=== PATIENT | female | born 1970 | race African-American/Black ===

== ENCOUNTER 2016-11-06 21:43 | Observation (INO) | payer MEDICAID ==
[~2016-11-06] VITALS: Ht 162.6 cm; Wt 54.0 kg
[2016-11-06 23:31] LABS: BASOPHILS % 0.6 % (0.0-2.0); EOSINOPHILS % 3.4 % (0.0-5.0); HEMATOCRIT. 21.5 % (36.0-48.0); LYMPHOCYTES % 21.8 % (20.0-50.0); MEAN CORPUSCULAR HEMOGLOBIN 20.8 pg (28.0-32.0); MEAN CORPUSCULAR VOLUME 64.5 fL (81.0-99.0); MEAN PLATELET VOLUME 7.6 fl (7.4-10.4); MONOCYTES % 6.6 % (2.0-8.0); NEUTROPHILS % 67.6 % (40.0-76.0); PLATELET 399 x1000/uL (130-400); RED BLOOD CELL COUNT 3.33 mill/uL (4.2-5.4); RED CELL DISTRIBUTION WIDTH 19.5 % (11.6-14.6)
[2016-11-06 23:32] LABS: INR 1.1; PROTHROMBIN TIME 11.2 sec
[2016-11-06 23:39] LABS: CARBON DIOXIDE 28 mEq/L (21-32); CHLORIDE 110 mEq/L (98-107)
[2016-11-06 23:45] LABS: HEMOGLOBIN. 6.9 g/dL (12.0-16.0)
[2016-11-07 00:08] LABS: CLARITY URINE TURBID (CLEAR); COLOR URINE YELLOW (YELLOW); GLUCOSE URINE NEGATIVE (NEGATIVE); KETONES URINE NEGATIVE (NEGATIVE); LEUKOCYTE ESTERASE URINE 3+ (NEGATIVE); NITRITE URINE POSITIVE (NEGATIVE); OCCULT BLOOD URINE 1+ (NEGATIVE); PH URINE 6.5 (4.5-8.0); PROTEIN URINE TRACE (NEGATIVE); SPECIFIC GRAVITY URINE 1.006 (1.005-1.030); UROBILINOGEN URINE 0.2 E.U./dL (0.2-1.0)
[2016-11-07] MEDS ORDERED: CEFTRIAXONE 1 G PREMIX 50 ML IV ONE (01:00)
[2016-11-07 04:38] LABS: PLATELET ESTIMATE NORMAL
[2016-11-07 08:53] VITALS: BP 128/87
[2016-11-07 11:39] VITALS: BP 128/87
[2016-11-07 12:00] VITALS: BP 120/95
[2016-11-07] MEDS ORDERED: ONDANSETRON HCL 4MG/2ML VIAL IV PRN (12:30)
[2016-11-07] MEDS ORDERED: ACETAMINOPHEN 325MG TABLET PO PRN (12:30)
[2016-11-07] MEDS ORDERED: HYDROCODONE/ACETAMINOPHEN 5/325MG TABLET PO PRN (12:30)
[2016-11-07] MEDS ORDERED: IPRATROPIUM/ALBUTEROL 0.5-3(2.5)MG/3ML NEB INH PRN (12:30)
[2016-11-07] MEDS ORDERED: CLONIDINE 0.1MG TABLET PO PRN (12:30)
[2016-11-07] MEDS ORDERED: LEVOFLOXACIN 500MG PREMIX 100 ML IV SCH (15:00)
[2016-11-07 16:00] VITALS: BP 104/59
[2016-11-07 16:01] LABS: CARBON DIOXIDE 24 mEq/L (21-32); CHLORIDE 104 mEq/L (98-107); CREATINE KINASE 46 IU/L (26-192); TROPONIN I < 0.02 ng/mL (0.00-0.04)
[2016-11-07] MEDS: ENOXAPARIN 30MG/0.3ML SYR SUBCUT SCH (16:08)
[2016-11-07] MEDS: AMLODIPINE 10MG TABLET PO SCH (16:09)
[2016-11-07 20:00] VITALS: BP 135/107
[2016-11-07 20:25] LABS: BASOPHILS % 0.7 % (0.0-2.0); EOSINOPHILS % 2.5 % (0.0-5.0); HEMATOCRIT. 27.3 % (36.0-48.0); HEMOGLOBIN. 8.8 g/dL (12.0-16.0); LYMPHOCYTES % 17.7 % (20.0-50.0); MEAN CORPUSCULAR HEMOGLOBIN 22.1 pg (28.0-32.0); MEAN CORPUSCULAR VOLUME 68.6 fL (81.0-99.0); MEAN PLATELET VOLUME 7.5 fl (7.4-10.4); NEUTROPHILS % 74.1 % (40.0-76.0); PLATELET 381 x1000/uL (130-400); RED BLOOD CELL COUNT 3.98 mill/uL (4.2-5.4); RED CELL DISTRIBUTION WIDTH 22.6 % (11.6-14.6)
[2016-11-07 23:44] LABS: CREATINE KINASE 44 IU/L (26-192); TROPONIN I < 0.02 ng/mL (0.00-0.04)
[2016-11-08 00:06] VITALS: BP 119/83
[2016-11-08] MEDS ORDERED: OLAN5TAB3 PO (02:57)
[2016-11-08] MEDS ORDERED: LORA1TAB PO (02:57)
[2016-11-08] MEDS ORDERED: ACET-2178 PO (02:57)
[2016-11-08] MEDS ORDERED: METO25TA6 PO (02:57)
[2016-11-08] MEDS ORDERED: ESCI10TA PO (02:57)
[2016-11-08] MEDS ORDERED: ASPI-1159 PO (02:57)
[2016-11-08] MEDS ORDERED: MULT-348 PO (02:57)
[2016-11-08] MEDS ORDERED: DOCU-150 PO (02:57)
[2016-11-08] MEDS ORDERED: TEMA15CA46 PO (02:57)
[2016-11-08 04:00] VITALS: BP 129/91
[2016-11-08 07:19] LABS: BASOPHILS % 1.1 % (0.0-2.0); EOSINOPHILS % 2.9 % (0.0-5.0); HEMATOCRIT. 28.1 % (36.0-48.0); HEMOGLOBIN. 9.2 g/dL (12.0-16.0); LYMPHOCYTES % 15.8 % (20.0-50.0); MEAN CORPUSCULAR HEMOGLOBIN 22.3 pg (28.0-32.0); MEAN PLATELET VOLUME 7.3 fl (7.4-10.4); NEUTROPHILS % 75.2 % (40.0-76.0); PLATELET 369 x1000/uL (130-400); RED BLOOD CELL COUNT 4.13 mill/uL (4.2-5.4); RED CELL DISTRIBUTION WIDTH 22.7 % (11.6-14.6)
[2016-11-08 07:52] LABS: T4 FREE 1.12 ng/dL (0.76-1.46)
[2016-11-08 08:00] VITALS: BP 117/80
[2016-11-08] MEDS: AMLODIPINE 10MG TABLET PO SCH (09:33)
[2016-11-08 12:00] VITALS: BP 121/86
[2016-11-08] MEDS ORDERED: LEVOFLOXACIN 250MG PREMIX 50 ML IV SCH (15:00)
[2016-11-08 16:00] VITALS: BP 108/70
[2016-11-08] MEDS: ENOXAPARIN 30MG/0.3ML SYR SUBCUT SCH (17:37)
[2016-11-08 20:00] VITALS: BP 140/99
[2016-11-09] VITALS: BP 133/98
[2016-11-09 04:00] VITALS: BP 148/93
[2016-11-09 08:00] VITALS: BP 135/93
[2016-11-09] MEDS: AMLODIPINE 10MG TABLET PO SCH (08:09)
[2016-11-09 10:49] VITALS: BP 122/68
== END 2016-11-09 10:30 | disposition home or self-care (01) ==
LOC: ER 22:01 → INTOOBSV 11-07 00:54 → 5WST 11-07 00:54 → ENRESERV 11-07 04:48 → CANRESERV 11-07 04:48 → ENRESERV 11-07 07:30 → 5WST 11-07 09:05
PROVIDERS: ADMIT Internal Medicine; ATTEND Internal Medicine
DX: D64.9 Anemia, unspecified (principal); E78.00 Pure hypercholesterolemia, unspecified; E86.0 Dehydration; F20.9 Schizophrenia, unspecified; F32.9 Major depressive disorder, single episode, unspecified; N30.00 Acute cystitis without hematuria; N18.9 Chronic kidney disease, unspecified; I12.9 Hypertensive chronic kidney disease with stage 1 through stage 4 chronic kidney disease, or unspecified chronic kidney disease; N28.9 Disorder of kidney and ureter, unspecified; R31.9 Hematuria, unspecified; E78.5 Hyperlipidemia, unspecified; N39.0 Urinary tract infection, site not specified; Z74.01 Bed confinement status
CPT/HCPCS: 36415; 36430; 51702; 71010; 80048; 80053; 80061; 81001; 81003; 82550; 84439; 84443; 84484; 85025; 85610; 86850; 86900; 86901; 86920; 87077; 87086; 93005; 96365; 96366; 96367; 96372; 99291; G0378; J0696; J1650; J1956; J7030; J7040; P9016; A4315

== ENCOUNTER 2021-11-22 13:12 | Inpatient (IN) | payer MEDICAID ==
[~2021-11-22] VITALS: Ht 162.6 cm; Wt 74.4 kg
[~2021-11-22 13:12] MED LIST: ASPI-1497 PO; DOCU-150 PO; ESCI10TA PO; LORA1TAB PO; METO25TA6 PO; MULT-348 PO; OLAN5TAB3 PO; TEMA15CA5 PO; TOPUD PO
[2021-11-22 15:42] LABS: BASOPHILS % 0.4 % (0.0-2.0); EOSINOPHILS % 6.3 % (0.0-5.0); LYMPHOCYTES % 25.5 % (20.0-50.0); MEAN CORPUSCULAR HEMOGLOBIN 23.4 pg (28.0-32.0); MEAN CORPUSCULAR VOLUME 72.5 fL (81.0-99.0); MEAN PLATELET VOLUME 8.7 fl (7.4-10.4); MONOCYTES % 8.9 % (2.0-8.0); NEUTROPHILS % 58.9 % (40.0-76.0); PLATELET 306 x1000/uL (130-400); RED BLOOD CELL COUNT 2.99 mill/uL (4.2-5.4); RED CELL DISTRIBUTION WIDTH 20.4 % (11.6-14.6)
[2021-11-22 15:45] LABS: CHLORIDE 110 mEq/L (98-107)
[2021-11-22 15:51] LABS: HEMATOCRIT. 21.7 % (36.0-48.0)
[2021-11-22] MEDS ORDERED: HALOPERIDOL LACTATE 5MG/ML VIAL IM ONE (16:45)
[2021-11-22] MEDS ORDERED: HALOPERIDOL LACTATE 5MG/ML VIAL IM NR (23:15)
[2021-11-22] MEDS ORDERED: HALOPERIDOL LACTATE 5MG/ML VIAL IM PRN (23:30)
[2021-11-22] MEDS ORDERED: MAGNESIUM/ALUMINUM HYDROXIDE/SIMETHICONE 30ML UDC PO PRN (23:30)
[2021-11-22] MEDS ORDERED: ZOLPIDEM TARTRATE 5MG TABLET PO PRN (23:30)
[2021-11-22] MEDS ORDERED: ONDANSETRON HCL 4MG/2ML INJ IV PRN (23:30)
[2021-11-22] MEDS ORDERED: ACETAMINOPHEN 325MG TABLET PO PRN ×2 (23:30)
[2021-11-22] MEDS ORDERED: CLONIDINE 0.1MG TABLET PO PRN ×2 (23:30)
[2021-11-22] MEDS ORDERED: DIPHENHYDRAMINE 50MG/ML VIAL IV PRN (23:30)
[2021-11-22] MEDS ORDERED: DEXTROSE 50% WATER 50ML SYRINGE IV PRN (23:30)
[2021-11-23 00:13] LABS: TOTAL IRON BINDING CAPACITY 333 ug/dL (250-450)
[2021-11-23 05:28] LABS: BASOPHILS % 0.3 % (0.0-2.0); EOSINOPHILS % 5.7 % (0.0-5.0); HEMOGLOBIN. 8.9 g/dL (12.0-16.0); LYMPHOCYTES % 20.9 % (20.0-50.0); MEAN CORPUSCULAR HEMOGLOBIN 24.6 pg (28.0-32.0); MEAN CORPUSCULAR VOLUME 74.7 fL (81.0-99.0); MEAN PLATELET VOLUME 8.9 fl (7.4-10.4); MONOCYTES % 8.8 % (2.0-8.0); NEUTROPHILS % 64.3 % (40.0-76.0); PLATELET 324 x1000/uL (130-400); RED BLOOD CELL COUNT 3.62 mill/uL (4.2-5.4); RED CELL DISTRIBUTION WIDTH 21.3 % (11.6-14.6)
[2021-11-23] MEDS: DIVALPROEX SODIUM 250MG DR TABLET PO SCH ×3 (06:00→21:28)
[2021-11-23] MEDS: SODIUM CHLORIDE 0.9% INJ 3ML FLUSH IVF SCH ×3 (06:00→21:29)
[2021-11-23] MEDS: INSULIN LISPRO 100 UNITS/ML SUBCUT SCH ×3 (08:20→21:00)
[2021-11-23] MEDS: BLOOD SUGAR DIAGNOSTIC STRIP TEST SCH ×4 (09:00→21:29)
[2021-11-23] MEDS: ASPIRIN 81MG EC TABLET PO SCH (16:17)
[2021-11-23] MEDS: CHOLECALCIFEROL (D3) 1000 UNIT TABLET PO SCH (16:17)
[2021-11-23] MEDS: FOLIC ACID 1MG TABLET PO SCH (16:17)
[2021-11-23] MEDS: MULTIVITAMINS,THER W-MINERALS TABLET PO SCH (16:17)
[2021-11-23] MEDS: ASCORBIC ACID 500 MG TABLET PO SCH (16:18)
[2021-11-23] MEDS: CARVEDILOL 12.5MG TABLET PO SCH ×2 (16:19→21:28)
[2021-11-23] MEDS: ZINC SULFATE 220 MG ( 50 ) CAPSULE PO SCH (16:33)
[2021-11-23 20:00] VITALS: BP 155/99
[2021-11-23] MEDS ORDERED: OLANZAPINE 5MG TABLET PO SCH (21:00)
[2021-11-23] MEDS: LACTULOSE 20G/30ML UDC PO SCH ×2 (21:28→21:31)
[2021-11-24] VITALS: BP 138/94
[2021-11-24 04:00] VITALS: BP 125/89
[2021-11-24] MEDS: LACTULOSE 20G/30ML UDC PO SCH ×2 (05:35→14:09)
[2021-11-24] MEDS: DIVALPROEX SODIUM 250MG DR TABLET PO SCH ×2 (05:35→14:09)
[2021-11-24] MEDS: SODIUM CHLORIDE 0.9% INJ 3ML FLUSH IVF SCH ×2 (05:35→14:09)
[2021-11-24] MEDS: BLOOD SUGAR DIAGNOSTIC STRIP TEST SCH ×3 (06:03→17:20)
[2021-11-24] MEDS: INSULIN LISPRO 100 UNITS/ML SUBCUT SCH ×3 (07:45→17:50)
[2021-11-24 08:00] VITALS: BP 156/95
[2021-11-24] MEDS: ZINC SULFATE 220 MG ( 50 ) CAPSULE PO SCH (09:33)
[2021-11-24] MEDS: MULTIVITAMINS,THER W-MINERALS TABLET PO SCH (09:33)
[2021-11-24] MEDS: ASCORBIC ACID 500 MG TABLET PO SCH (09:33)
[2021-11-24] MEDS: FOLIC ACID 1MG TABLET PO SCH (09:33)
[2021-11-24] MEDS: CARVEDILOL 12.5MG TABLET PO SCH (09:34)
[2021-11-24] MEDS: ASPIRIN 81MG EC TABLET PO SCH (09:36)
[2021-11-24] MEDS: CHOLECALCIFEROL (D3) 1000 UNIT TABLET PO SCH (09:36)
[2021-11-24 12:00] VITALS: BP 145/97
[2021-11-24 16:00] VITALS: BP 152/99
[2021-11-24 17:36] VITALS: BP 152/99
== END 2021-11-24 18:33 | DRG 663 ==
LOC: ER 13:23 → EDBEDREQSVC 19:45 → EDBEDREQTM 19:45 → EDBEDREQ 19:45 → ENRESERV 11-23 13:46 → 6EST 11-23 17:53
PROVIDERS: ADMIT Internal Medicine; ATTEND Internal Medicine
PROC: 30233N1 Transfusion of Nonautologous Red Blood Cells into Peripheral Vein, Percutaneous Approach (ICD-10-PCS; principal; 2021-11-22)
DX: D64.9 Anemia, unspecified (principal); E11.22 Type 2 diabetes mellitus with diabetic chronic kidney disease; E11.51 Type 2 diabetes mellitus with diabetic peripheral angiopathy without gangrene; N18.9 Chronic kidney disease, unspecified; K76.9 Liver disease, unspecified; I12.9 Hypertensive chronic kidney disease with stage 1 through stage 4 chronic kidney disease, or unspecified chronic kidney disease; F20.9 Schizophrenia, unspecified; K21.9 Gastro-esophageal reflux disease without esophagitis; F31.9 Bipolar disorder, unspecified; Z79.82 Long term (current) use of aspirin; Z79.899 Other long term (current) drug therapy
CPT/HCPCS: 36415; 80053; 82962; 83540; 83550; 85025; 86850; 86900; 86920; 93005; 99285; J1630; P9016

== ENCOUNTER 2022-08-19 20:17 | Inpatient (IN) | payer MEDICAID ==
[~2022-08-19] VITALS: Ht 160 cm; Wt 81.6 kg
[2022-08-19] MEDS ORDERED: HYDROCODONE/ACETAMINOPHEN 5/325MG TABLET PO STA (21:02)
[2022-08-19] MEDS ORDERED: VISCOUS LIDOCAINE 2% 15 ML UDC PO ONE (21:15)
[2022-08-19] MEDS ORDERED: MAGNESIUM/ALUMINUM HYDROXIDE/SIMETHICONE 30ML UDC PO ONE (21:15)
[2022-08-19 22:01] LABS: BASOPHILS % 0.4 % (0.0-2.0); EOSINOPHILS % 5.5 % (0.0-5.0); HEMATOCRIT. 22.2 % (36.0-48.0); HEMOGLOBIN. 7.3 g/dL (12.0-16.0); LYMPHOCYTES % 22.9 % (20.0-50.0); MEAN CORPUSCULAR HEMOGLOBIN 23.1 pg (28.0-32.0); MEAN CORPUSCULAR VOLUME 70.3 fL (81.0-99.0); MEAN PLATELET VOLUME 8.9 fl (7.4-10.4); NEUTROPHILS % 65.2 % (40.0-76.0); PLATELET 382 x1000/uL (130-400); RED BLOOD CELL COUNT 3.15 mill/uL (4.2-5.4); RED CELL DISTRIBUTION WIDTH 16.7 % (11.6-14.6)
[2022-08-19 22:06] LABS: CHLORIDE 108 mEq/L (98-107)
[2022-08-19] MEDS ORDERED: SODIUM CHLORIDE 0.9% 1,000 ML IV ONE (22:45)
[2022-08-19] MEDS ORDERED: MORPHINE SULFATE 2 MG/ML CPJ (NOT FOR IM USE) IV ONE (23:15)
[2022-08-20] MEDS ORDERED: ASPIRIN 325MG EC TABLET PO NR (00:15)
[2022-08-20 10:33] VITALS: BP 145/57
[2022-08-20] MEDS ORDERED: HYDROCODONE/ACETAMINOPHEN 5/325MG TABLET PO PRN (10:45)
[2022-08-20] MEDS ORDERED: ONDANSETRON HCL 4MG/2ML INJ IV PRN (10:45)
[2022-08-20] MEDS ORDERED: MAGNESIUM/ALUMINUM HYDROXIDE/SIMETHICONE 30ML UDC PO PRN (10:45)
[2022-08-20] MEDS ORDERED: DOCUSATE SODIUM 100MG CAPSULE PO PRN (10:45)
[2022-08-20] MEDS ORDERED: ACETAMINOPHEN 325MG TABLET PO PRN ×2 (10:45)
[2022-08-20] MEDS ORDERED: POTASSIUM CHLORIDE INJ 30 MEQ in DEXT 5%/0.9% NACL 1,000 ML IV ONE (10:45)
[2022-08-20] MEDS ORDERED: DEXTROSE 50% WATER 50ML SYRINGE IV PRN (10:45)
[2022-08-20] MEDS ORDERED: PANTOPRAZOLE SODIUM 40 MG/VIAL IV SCH (10:45)
[2022-08-20] MEDS: SODIUM CHLORIDE 0.45% 1,000 ML IV SCH (10:45)
[2022-08-20] MEDS ORDERED: IPRATROPIUM/ALBUTEROL 0.5-3(2.5)MG/3ML NEB HHN PRN (10:45)
[2022-08-20] MEDS ORDERED: NA PHOS,M-B/NA PHOS,DI-BA ENEMA 118ML PR PRN (10:45)
[2022-08-20] MEDS ORDERED: TEMAZEPAM 15MG CAPSULE PO PRN (11:00)
[2022-08-20] MEDS ORDERED: ALBUTEROL (0.083%) 2.5MG/3ML NEB HHN PRN (11:15)
[2022-08-20] MEDS ORDERED: IPRATROPIUM BROMIDE (0.02%) 0.5MG/2.5ML NEB HHN PRN (11:15)
[2022-08-20] MEDS ORDERED: POTASSIUM CHLORIDE 20MEQ TABLET SR PO NR (11:15)
[2022-08-20] MEDS: FERROUS SULFATE 325MG TABLET PO SCH ×2 (11:46→16:49)
[2022-08-20] MEDS: HYDRALAZINE 20MG/ML VIAL IV SCH ×2 (11:47→16:51)
[2022-08-20] MEDS: BLOOD SUGAR DIAGNOSTIC STRIP TEST SCH ×2 (11:59→16:33)
[2022-08-20 12:00] VITALS: BP 142/98
[2022-08-20] MEDS ORDERED: ENOXAPARIN 30MG/0.3ML SYR SUBCUT SCH (12:00)
[2022-08-20] MEDS ORDERED: MVI, ADULT NO.1 10 ML, FOLIC ACID 1 MG, THIAMINE HCL 100 MG in SODIUM CHLORIDE 0.9% 1,0... IV SCH ×4 (12:00)
[2022-08-20] MEDS ORDERED: NA PHOS,M-B/NA PHOS,DI-BA ENEMA 118ML PR NR (12:00)
[2022-08-20] MEDS: INSULIN LISPRO 100 UNITS/ML SUBCUT SCH ×2 (12:00→16:33)
[2022-08-20 12:28] LABS: BASOPHILS % 0.5 % (0.0-2.0); EOSINOPHILS % 5.8 % (0.0-5.0); HEMATOCRIT. 24.7 % (36.0-48.0); HEMOGLOBIN. 8.1 g/dL (12.0-16.0); LYMPHOCYTES % 27.8 % (20.0-50.0); MEAN CORPUSCULAR HEMOGLOBIN 23.1 pg (28.0-32.0); MEAN CORPUSCULAR VOLUME 70.6 fL (81.0-99.0); MEAN PLATELET VOLUME 8.7 fl (7.4-10.4); MONOCYTES % 5.8 % (2.0-8.0); NEUTROPHILS % 60.1 % (40.0-76.0); PLATELET 391 x1000/uL (130-400); RED CELL DISTRIBUTION WIDTH 16.8 % (11.6-14.6)
[2022-08-20 12:36] LABS: D-DIMER 0.46 mg/L FEU (<0.50); PROTHROMBIN TIME 10.9 sec (9.6-11.0)
[2022-08-20 13:01] LABS: CREATINE KINASE MB FRACTION 2.5 ng/mL (0.5-3.6)
[2022-08-20 13:08] LABS: T4 FREE 0.96 ng/dL (0.76-1.46)
[2022-08-20 16:00] VITALS: BP 168/100
[2022-08-20] MEDS ORDERED: SORBITOL 70% SOLN 30ML PO NR (16:00)
[2022-08-20] MEDS: IRON SUCROSE COMPLEX 100 MG/5 ML ML IV SCH (16:50)
[2022-08-20] MEDS: PANTOPRAZOLE SODIUM 40 MG/VIAL IV SCH (16:51)
[2022-08-20 17:15] LABS: CLARITY URINE CLEAR (CLEAR); COLOR URINE YELLOW (YELLOW); KETONES URINE NEGATIVE (NEGATIVE); LEUKOCYTE ESTERASE URINE 3+ (NEGATIVE); NITRITE URINE NEGATIVE (NEGATIVE); OCCULT BLOOD URINE TRACE (NEGATIVE); PH URINE 8.5 (4.5-8.0); PROTEIN URINE TRACE (NEGATIVE); SPECIFIC GRAVITY URINE 1.006 (1.005-1.030); UROBILINOGEN URINE 0.2 E.U./dL (0.2-1.0)
[2022-08-20 17:30] LABS: *AMPHETAMINES SCREEN URINE NEGATIVE (NEGATIVE); *BARBITURATES SCREEN URINE NEGATIVE (NEGATIVE); *BENZODIAZEPINES SCREEN URINE NEGATIVE (NEGATIVE); *COCAINE SCREEN URINE NEGATIVE (NEGATIVE); CANNABINOID URINE SCREEN NEGATIVE (NEGATIVE); METHADONE URINE SCREEN NEGATIVE (NEGATIVE); OPIATES URINE SCREEN NEGATIVE (NEGATIVE); PHENCYCLIDINE URINE SCREEN NEGATIVE (NEGATIVE)
[2022-08-20] MEDS ORDERED: HYDRALAZINE 20MG/ML VIAL IV PRN (18:11)
[2022-08-20] MEDS: AMLODIPINE 5MG TABLET PO SCH (18:40)
[2022-08-20 18:41] VITALS: BP 143/87
[2022-08-20 20:00] VITALS: BP 153/90
[2022-08-20] MEDS: ATORVASTATIN CALCIUM 40MG TABLET PO SCH (20:56)
[2022-08-21] VITALS (10 sets, daily range): BP systolic 106–156; BP diastolic 72–97
[2022-08-21] MEDS: CLONIDINE 0.1MG TABLET PO PRN ×3 (00:56→18:53)
[2022-08-21 03:30] LABS: HEMATOCRIT. 22.4 % (36.0-48.0); HEMOGLOBIN. 7.2 g/dL (12.0-16.0); MEAN CORPUSCULAR HEMOGLOBIN 22.5 pg (28.0-32.0); MEAN CORPUSCULAR VOLUME 70.1 fL (81.0-99.0); MEAN PLATELET VOLUME 9.1 fl (7.4-10.4); PLATELET 345 x1000/uL (130-400); RED BLOOD CELL COUNT 3.19 mill/uL (4.2-5.4); RED CELL DISTRIBUTION WIDTH 17.3 % (11.6-14.6)
[2022-08-21 03:37] LABS: INR 1.1; PROTHROMBIN TIME 11.3 sec (9.6-11.0)
[2022-08-21] MEDS: SODIUM CHLORIDE 0.45% 1,000 ML IV SCH (05:11)
[2022-08-21] MEDS: CYANOCOBALAMIN 100MCG TABLET PO SCH (06:37)
[2022-08-21] MEDS: FERROUS SULFATE 325MG TABLET PO SCH ×3 (06:37→16:42)
[2022-08-21] MEDS: BISACODYL 5MG TABLET PO SCH (09:01)
[2022-08-21] MEDS: PANTOPRAZOLE SODIUM 40 MG/VIAL IV SCH ×2 (09:01→16:41)
[2022-08-21] MEDS: AMLODIPINE 5MG TABLET PO SCH ×2 (09:01→20:41)
[2022-08-21] MEDS ORDERED: LIDOCAINE HCL 1% 10 MG/ML 10ML VIAL ONE ×2 (10:26→11:37)
[2022-08-21] MEDS ORDERED: SODIUM CHLORIDE 0.9% 10ML VIAL ONE (11:37)
[2022-08-21] MEDS ORDERED: EPHEDRINE SULFATE 50MG/ML VIAL ONE (11:37)
[2022-08-21] MEDS ORDERED: PROPOFOL 200MG/20ML VIAL IV ONE (11:38)
[2022-08-21] MEDS ORDERED: PHENYLEPHRINE HCL 10 MG/ML 1ML (IV VIAL) IV ONE (11:38)
[2022-08-21] MEDS: OLANZAPINE 5MG TABLET ODT PO SCH ×2 (13:19→16:42)
[2022-08-21] MEDS: FLUOXETINE HCL 10 MG CAPSULE PO SCH (13:19)
[2022-08-21 13:55] LABS: PLATELET ESTIMATE NORMAL
[2022-08-21] MEDS ORDERED: MIDAZOLAM HCL 2 MG/2 ML VIAL ONE (14:47)
[2022-08-21] MEDS: SUCRALFATE 1 G/10 ML UDC PO SCH ×2 (16:41→20:42)
[2022-08-21] MEDS: IRON SUCROSE COMPLEX 100 MG/5 ML ML IV SCH (16:41)
[2022-08-21] MEDS: ATORVASTATIN CALCIUM 40MG TABLET PO SCH (20:41)
[2022-08-21 21:16] LABS: HEMATOCRIT 25.3 % (36.0-48.0); HEMOGLOBIN 8.1 g/dL (12.0-16.0)
[2022-08-22] VITALS: BP 142/80
[2022-08-22] MEDS: SODIUM CHLORIDE 0.45% 1,000 ML IV SCH (03:04)
[2022-08-22 04:00] VITALS: BP 107/75
[2022-08-22] MEDS: SUCRALFATE 1 G/10 ML UDC PO SCH ×2 (06:26→12:13)
[2022-08-22] MEDS: FERROUS SULFATE 325MG TABLET PO SCH ×3 (06:26→15:47)
[2022-08-22] MEDS: CYANOCOBALAMIN 100MCG TABLET PO SCH (06:26)
[2022-08-22 06:29] LABS: BASOPHILS % 0.3 % (0.0-2.0); EOSINOPHILS % 6.5 % (0.0-5.0); HEMATOCRIT. 26.9 % (36.0-48.0); HEMOGLOBIN. 8.9 g/dL (12.0-16.0); LYMPHOCYTES % 17.7 % (20.0-50.0); MEAN CORPUSCULAR HEMOGLOBIN 24.3 pg (28.0-32.0); MEAN CORPUSCULAR VOLUME 73.3 fL (81.0-99.0); MEAN PLATELET VOLUME 9.3 fl (7.4-10.4); MONOCYTES % 6.6 % (2.0-8.0); NEUTROPHILS % 68.9 % (40.0-76.0); PLATELET 340 x1000/uL (130-400); RED BLOOD CELL COUNT 3.67 mill/uL (4.2-5.4); RED CELL DISTRIBUTION WIDTH 19.1 % (11.6-14.6)
[2022-08-22 08:00] VITALS: BP 151/84
[2022-08-22 08:18] LABS: FOLIC ACID (FOLATE) SERUM 9.9 ng/mL (>5.38)
[2022-08-22] MEDS: OLANZAPINE 5MG TABLET ODT PO SCH (08:48)
[2022-08-22] MEDS: AMLODIPINE 5MG TABLET PO SCH (08:48)
[2022-08-22] MEDS: BISACODYL 5MG TABLET PO SCH (08:48)
[2022-08-22] MEDS: FLUOXETINE HCL 10 MG CAPSULE PO SCH (08:48)
[2022-08-22] MEDS: PANTOPRAZOLE SODIUM 40 MG/VIAL IV SCH (08:48)
[2022-08-22 12:00] VITALS: BP 148/100
[2022-08-22] MEDS: CLONIDINE 0.1MG TABLET PO PRN (15:47)
[2022-08-22 16:00] VITALS: BP 138/83
[2022-08-22 16:23] VITALS: BP 138/83
== END 2022-08-22 16:54 | DRG 241 ==
LOC: ER 20:17 → MICUSO 08-20 00:12 → EDBEDREQTM 08-20 00:16 → EDBEDREQ 08-20 00:16 → 7EST 08-20 09:56
PROVIDERS: ADMIT Internal Medicine; ATTEND Internal Medicine
PROC: 0DB78ZX Excision of Stomach, Pylorus, Via Natural or Artificial Opening Endoscopic, Diagnostic (ICD-10-PCS; principal; 2022-08-21)
PROC: 30233N1 Transfusion of Nonautologous Red Blood Cells into Peripheral Vein, Percutaneous Approach (ICD-10-PCS; 2022-08-21)
PROC: 02HV33Z Insertion of Infusion Device into Superior Vena Cava, Percutaneous Approach (ICD-10-PCS; 2022-08-22)
PROC: B548ZZA Ultrasonography of Superior Vena Cava, Guidance (ICD-10-PCS; 2022-08-22)
PROC: B518ZZA Fluoroscopy of Superior Vena Cava, Guidance (ICD-10-PCS; 2022-08-22)
DX: K25.9 Gastric ulcer, unspecified as acute or chronic, without hemorrhage or perforation (principal); R65.11 Systemic inflammatory response syndrome (SIRS) of non-infectious origin with acute organ dysfunction; G93.41 Metabolic encephalopathy; E46 Unspecified protein-calorie malnutrition; N17.9 Acute kidney failure, unspecified; D72.10 Eosinophilia, unspecified; E87.0 Hyperosmolality and hypernatremia; E87.20 Acidosis, unspecified; F25.0 Schizoaffective disorder, bipolar type; K44.9 Diaphragmatic hernia without obstruction or gangrene; D50.9 Iron deficiency anemia, unspecified; N18.9 Chronic kidney disease, unspecified; F31.9 Bipolar disorder, unspecified; I12.9 Hypertensive chronic kidney disease with stage 1 through stage 4 chronic kidney disease, or unspecified chronic kidney disease; K76.0 Fatty (change of) liver, not elsewhere classified; E11.22 Type 2 diabetes mellitus with diabetic chronic kidney disease; K21.9 Gastro-esophageal reflux disease without esophagitis; K29.70 Gastritis, unspecified, without bleeding; E87.6 Hypokalemia; Z20.822 Contact with and (suspected) exposure to COVID-19; K56.41 Fecal impaction; K57.90 Diverticulosis of intestine, part unspecified, without perforation or abscess without bleeding; E86.0 Dehydration; N27.1 Small kidney, bilateral; G47.09 Other insomnia; F41.9 Anxiety disorder, unspecified; R79.89 Other specified abnormal findings of blood chemistry; J98.11 Atelectasis; Z90.49 Acquired absence of other specified parts of digestive tract; Z74.01 Bed confinement status
CPT/HCPCS: 36415; 36573; 71045; 74176; 76705; 76770; 80048; 80053; 80061; 80305; 81003; 82270; 82550; 82553; 82607; 82728; 82746; 82962; 83036; 83540; 83550; 83880; 84439; 84443; 84484; 85014; 85018; 85025; 85044; 85379; 86677; 86850; 86900; 86920; 87426; 88305; 93005; 93970; 97162; 99285; C1725; C9113; J0360; J1650; J2250; J2370; J2704; J3411; J3490; J7030; P9016